=== PATIENT | female | born 1970 ===

== ENCOUNTER 2022-01-27 17:52 | Emergency (ER) | payer MEDICARE ==
--- NOTE | 2022-01-27 18:59 | Emergency Department Report ---
ED Head Trauma HPI - General Chief complaint: Head Injury Stated complaint: HEAD PAIN Time Seen by Provider: 01/27/22 18:57 Source: EMS Mode of arrival: Stretcher Limitations: Physical Limitation - History of Present Illness Initial comments: Is a 51-year-old female who presents emergency department today after a fall in a wheelchair van. Patient was being transferred in the wheelchair when she hit her left side of her body and left hip. Patient complains of left hip, thigh, knee, ankle pain. She denies loss of consciousness. She states she is u p-to-date on her tetanus vaccination. - Related Data Previous Rx's Medication Instructions Recorded Last Taken Type HYDROcodone/APAP 5-325 [[place] 1 each PO Q6HR PRN 3 Days #12 01/27/22 Unknown Rx 5/325] tablet Allergies/Adverse reactions: Allergies Allergy/AdvReac Type Severity Reaction Status Date / Time No Known Allergies Allergy Verified 01/27/22 18:10 ED Review of Systems ROS: Stated complaint: HEAD PAIN Other details as noted in HPI Constitutional: denies: chills, fever Eyes: denies: eye pain, eye discharge, vision change ENT: denies: ear pain, throat pain Respiratory: denies: cough, shortness of breath, wheezing Cardiovascular: denies: chest pain, palpitations Endocrine: no symptoms reported Gastrointestinal: denies: abdominal pain, nausea, diarrhea Genitourinary: denies: urgency, dysuria, discharge Musculoskeletal: other (pain in the L side). denies: back pain, joint swelling, arthralgia Skin: denies: rash, lesions Neurological: denies: headache, weakness, paresthesias Psychiatric: denies: anxiety, depression Hematological/Lymphatic: denies: easy bleeding, easy bruising ED Past Medical Hx - Past Medical History Previous Medical History?: Yes Hx Hypertension: Yes Hx CVA: Yes - Medications Home Medications: Home Medications Medication Instructions Recorded Confirmed Last Taken Type HYDROcodone/APAP 5-325 [[place] 1 each PO Q6HR PRN 3 Days #12 01/27/22 Unknown Rx 5/325] tablet ED Physical Exam - General Limitations: Physical Limitation General appearance: alert, in no apparent distress - Head Head exam: Present: normocephalic, other (Superficial lacerations noted to the area above the left eyebrow, area between the eyebrows.) - Eye Eye exam: Present: normal appearance - ENT ENT exam: Present: mucous membranes moist - Neck Neck exam: Present: normal inspection - Respiratory Respiratory exam: Present: normal lung sounds bilaterally. Absent: respiratory distress - Cardiovascular Cardiovascular Exam: Present: regular rate, normal rhythm. Absent: systolic murmur, diastolic murmur, rubs, gallop - GI/Abdominal GI/Abdominal exam: Present: soft, normal bowel sounds - Extremities Exam Extremities exam: Present: other (Patient has tenderness to the left hip, left thigh, left knee, left ankle. There is swelling to the left ankle. There is decreased range of motion at the left hip and left knee.) - Back Exam Back exam: Present: normal inspection - Neurological Exam Neurological exam: Present: alert, oriented X3, motor sensory deficit (right sided) - Psychiatric Psychiatric exam: Present: normal affect, normal mood - Skin Skin exam: Present: warm, dry, intact, normal color. Absent: rash ED Course Vital Signs 01/27/22 01/27/22 01/27/22 18:04 21:38 21:41 Temperature 98.2 F 98.3 F Pulse Rate 121 H 95 H 94 H Respiratory 16 12 12 Rate Blood Pressure 103/62 Blood Pressure 132/86 103/62 [Left] O2 Sat by Pulse 99 99 98 Oximetry 01/27/22 21:45 Temperature Pulse Rate 92 H Respiratory 16 Rate Blood Pressure 103/62 Blood Pressure [Left] O2 Sat by Pulse 98 Oximetry - Consultations Consultation #1: 01/27/22 23:09 I was able discussed with orthopedist on-call at [facility]. They recommend patient be placed in a posterior short leg. Plan for patient to follow-up with orthopedics, Dr. Latif. 01/27/22 23:35 - Radiology Data Radiology results: report reviewed, image reviewed - Medical Decision Making Patient is a 51-year-old female with history of CVA and previous right-sided deficits who presents to the emergency department with complaints of left-sided body pain and closed head injury after a fall while being transferred in her wheelchair. Patient to be given [place] for pain, chest pelvis and extremity x- rays are ordered. CT brain and C-spine are also ordered to further evaluate her closed head injury. Patient is up-to-date on tetanus and if imaging is negative patient likely be discharged home with close outpatient follow-up. Critical care attestation.: If time is entered above; I have spent that time in minutes in the direct care of this critically ill patient, excluding procedure time. ED Disposition Clinical Impression: Talar fracture, Fracture, fibula, proximal Disposition: 01 HOME / SELF CARE / HOMELESS Is pt being admited?: No Does the pt Need Aspirin: No Condition: Stable Instructions: Nondisplaced Fibular Ankle Fracture Treated With Immobilization, Adult, Tarsal Fracture Rehab-SportsMed, Tibial and Fibular Fractures Prescriptions: HYDROcodone/APAP 5-325 [[place] 5/325] 1 each PO Q6HR PRN 3 Days #12 tablet PRN Reason: Pain Referrals: PRIMARY CARE, [Primary Care Provider] - 3-5 Days NITHYA LATIF MD [Staff Physician] - 3-5 Days (Orthopedic surgery)
[2022-01-27] MEDS ORDERED: HYDROcodone/ACETAMINOPHEN 5-325 MG TAB PO ONE ×2 (19:20→22:03)
--- NOTE | 2022-01-27 20:16 | XRay Report ---
LEFT ANKLE 2 VIEW(S) INDICATION / CLINICAL INFORMATION: L knee pain/swelling after fall COMPARISON: None available. FINDINGS: BONES / JOINT(S): Lucency through the dorsal aspect of the talus suggesting a nondisplaced talar frac ture. No significant arthritis. SOFT TISSUES: No significant abnormality. ADDITIONAL FINDINGS: None. Signer Name: Jeremiah Escalona DO Signed: 01/27/2022 8:12 PM Workstation Name: [id number]
--- NOTE | 2022-01-27 20:17 | XRay Report ---
PELVIS 1 VIEW(S) INDICATION / CLINICAL INFORMATION: fall L hip pain COMPARISON: None available. FINDINGS: BONES / JOINT(S): No acute fracture or subluxation. No significant arthritis. SOFT TISSUES: No significant abnormality. ADDITIONAL FINDINGS: None. Signer Name: Jeremiah Escalona DO Signed: 01/27/2022 8:12 PM Workstation Name: [id number]
--- NOTE | 2022-01-27 20:18 | XRay Report ---
LEFT KNEE 2 VIEW(S) INDICATION / CLINICAL INFORMATION: fall l knee pain COMPARISON: None available. FINDINGS: BONES / JOINT(S): There is a nondisplaced incomplete fracture of the proximal fibular metaphysis. 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 SOFT TISSUES: No significant abnormality. ADDITIONAL FINDINGS: None. Signer Name: Jeremiah Escalona DO Signed: 01/27/2022 8:14 PM Workstation Name: [id number]
--- NOTE | 2022-01-27 20:19 | XRay Report ---
CHEST 1 VIEW 01/27/2022 7:37 PM INDICATION / CLINICAL INFORMATION: fall. COMPARISON: None available. FINDINGS: SUPPORT DEVICES: None. HEART / MEDIASTINUM: No significant abnormality. LUNGS / PLEURA: No significant pulmonary or pleural abnormality. No pneumothorax. ADDITIONAL FINDINGS: No significant additional findings. IMPRESSION: 1. No acute findings. Signer Name: Jeremiah Escalona DO Signed: 01/27/2022 8:14 PM Workstation Name: [id number]
--- NOTE | 2022-01-27 20:21 | Cat Scan Report ---
CT head/brain wo con INDICATION / CLINICAL INFORMATION: 51 years Female; closed head injury with scalp lac; hx cva. TECHNIQUE: Routine CT head without contrast. All CT scans at this location are performed using CT dos e reduction for ALARA by means of automated exposure control. COMPARISON: None. FINDINGS: BRAIN / INTRACRANIAL CONTENTS: 13 mm soft tissue lesion seen adjacent to the superior sagittal sinus and posterior aspect the left superior frontal gyrus, most likely representing a small meningioma. Small to moderately sized arachnoid cyst is adjacent to the paracentral lobule on the right-of no cli nical significance. Otherwise, no acute hemorrhage, mass effect, midline shift, hydrocephalus, or acute, large territori al infarct. Mild, diffuse cerebral atrophy. There are moderate areas of decreased attenuation in the white matter of the cerebral hemispheres, as well as the gangliocapsular regions. These are nonspecific findings and may be related to microangio mandie (hypertension, diabetes, atherosclerosis), given the patient's age. It might be difficult to ev aluate for small areas of ischemia without diffusion imaging by MRI. CRANIOCERVICAL JUNCTION: No significant abnormality. ORBITS: No significant abnormality of visualized orbits. SINUSES / MASTOIDS: Visualized paranasal sinuses and mastoid air cells are essentially clear. ADDITIONAL FINDINGS: Subcutaneous soft tissue swelling is seen in the right frontal region. No signs of underlying calvarial fracture appreciated. Atherosclerotic disease is seen in the anterior circulation. IMPRESSION: 1. No focal intra-axial mass, intracranial hemorrhage, hydrocephalus, or acute, large territorial inf arct. 2. Small, presumed meningioma along the falx cerebri as described above. Follow-up CT scan in 6-12 mo nths may be of benefit to ensure stability of this finding, if no prior exams are available for paxton kia. Signer Name: Pastor Donald MD, III Signed: 01/27/2022 8:17 PM Workstation Name: [email or web address]
--- NOTE | 2022-01-27 20:29 | Cat Scan Report ---
CT cervical spine wo con INDICATION / CLINICAL INFORMATION: 51 years Female; closed head injury with scalp lac; hx cva. TECHNIQUE: Axial CT images of the cervical spine were obtained. Sagittal and coronal reformatted images were pr oduced. All CT scans at this location are performed using CT dose reduction for ALARA by means of aut omated exposure control. COMPARISON: None available. FINDINGS: POST-SURGICAL CHANGES: MIKEY-C device is seen at C3-4 and C5-6. Interbody grafts at these levels appear to be solidly fused. ALIGNMENT: Straightening of the cervical spine noted, which may be related to patient positioning. VERTEBRAE: No signs of fracture. Vertebral bodies are grossly normal in height throughout. Mild osseous foraminal narrowing on the right at C4-5 from uncinate hypertrophy. Minimal osseous fora theo narrowing on the left at C3-4 from facet hypertrophy-note, this level is fused. INTRAVERTEBRAL DISCS: Disc space narrowing seen at C4-5. Minimal disc disease seen at multiple levels . Mild canal narrowing suggested at C4-5. PARASPINAL SOFT TISSUES: No significant abnormality. ADDITIONAL FINDINGS: Atherosclerotic disease is seen in the anterior circulation. IMPRESSION: 1. No signs of acute bony trauma to the cervical spine. Signer Name: Pastor Donald MD, III Signed: 01/27/2022 8:24 PM Workstation Name: [email or web address]
[2022-01-28] MEDS ORDERED: ONDANSETRON 4 MG/2 ML INJ IM ONE (01:43)
[2022-01-28] MEDS ORDERED: fentaNYL 100 MCG/2 ML INJ IM ONE (01:43)
[2022-01-28] MEDS ORDERED: HYDROmorphone 1 MG/1 ML INJ IM ONE (05:25)
[2022-01-28 08:23] VITALS: BP 53/30
== END 2022-01-28 08:34 | disposition home or self-care (01) ==
LOC: ED 17:52
DX: S92.102A Unspecified fracture of left talus, initial encounter for closed fracture (principal); S82.402A Unspecified fracture of shaft of left fibula, initial encounter for closed fracture; I10 Essential (primary) hypertension; Z86.73 Personal history of transient ischemic attack (TIA), and cerebral infarction without residual deficits; W22.8XXA Striking against or struck by other objects, initial encounter; Y93.89 Activity, other specified; Y92.89 Other specified places as the place of occurrence of the external cause; Y99.8 Other external cause status
CPT/HCPCS: 70450; 71045; 72125; 72170; 73560; 73600; 96372; 99284; J1170; J2405; J3010